=== PATIENT | male | born 1980 | race African-American/Black ===

== ENCOUNTER 2018-02-27 22:06 | Emergency (ER) | payer OTHER, MEDICAID, SELFPAY ==
[2018-02-27 22:13] VITALS: BP 131/82; PULSE 61; RESP 18; TEMP 37.5; O2SAT 98
--- NOTE | 2018-02-27 22:29 | ED.ABDPAIN ---
HPI - Abdominal Pain General Chief Complaint: Abdominal Pain Stated Complaint: RUQ pain Time Seen by Provider: 02/27/18 22:29 Source: patient and EMS Mode of arrival: EMS Limitations: no limitations History of Present Illness HPI narrative: 38-year-old male with longstanding history of pancreatitis presents to the emergency department with chief complaint of epigastric pain and vomiting. He has been to [facility] for times in the past week for the same. He is well known to myself self and other staff for the same. The patient has established care with [facility] gastroenterology any even oncology given some recent abnormal lab test. He has an upcoming appointment with them complaint: abdominal pain Onset (ago): minute(s) Pain Consistency: constant Location: epigastric Severity: mild Severity scale (1-10): 4 Quality: stabbing Radiation: none Migration to: no migration Relieving factors: nothing Exacerbating factors: nothing Associated symptoms: nausea and vomiting Related Data Home Medications Medication Instructions Recorded Confirmed amlodipine #90 09/23/17 famotidine #30 09/23/17 lorazepam #15 09/23/17 oxycodone-acetaminophen #15 09/23/17 polyethylene glycol 3350 #527 09/23/17 sucralfate #40 09/23/17 Previous Rx's Medication Instructions Recorded hydrocodone-acetaminophen [[place]] 1 tab PO Q6HP PRN #10 tab 07/16/17 ondansetron [Zofran ODT] 4 mg SUBLINGUAL Q6HP PRN #10 odt 07/16/17 omeprazole magnesium [Prilosec OTC] 20 mg PO QDAY #30 12/07/17 oxycodone-acetaminophen [Percocet] 1 tab PO Q4HP PRN #15 tab 12/07/17 sucralfate [Carafate] 1 gm PO ACHS #1 bot 12/07/17 promethazine [Phenergan] 25 mg RC Q8HP PRN #14 12/15/17 promethazine [Phenergan] 25 mg WI Q4-6H PRN #12 each 02/28/18 Allergies Allergy/AdvReac Type Severity Reaction Status Date / Time morphine [MORPHINE] Allergy Unknown Unverified 12/11/17 12:03 Review of Systems Review of Systems All systems reviewed & are unremarkable except as noted in HPI and below Constitutional Denies chills, Denies fever(s), Denies lethargy and Denies weakness Eyes Denies change in vision, Denies eye discharge, Denies irritation and Denies loss of vision ENT Ears, Nose, Mouth, and Throat: Denies change in voice, Denies neck pain and Denies sore throat Cardiovascular Denies chest pain, Denies irregular heart rhythm, Denies lightheadedness, Denies palpitations, Denies dyspnea, Denies dyspnea on exertion and Denies orthopnea Respiratory Denies cough, Denies dyspnea, Denies dyspnea on exertion and Denies wheezing Gastrointestinal Gastrointestinal: Reports abdominal pain, Denies change in bowel habits, Denies diarrhea, Reports nausea and Reports vomiting Genitourinary Denies hematuria, Denies flank pain, Denies urinary incontinence and Denies urinary urgency Musculoskeletal Denies neck pain Integumentary/Breasts Denies pruritus, Denies erythema, Denies rash and Denies wounds Neurologic Denies confusion, Denies loss of vision and Denies weakness Psychiatric Denies anxiety, Denies confusion, Denies depression, Denies homicidal ideation and Denies suicidal ideation Endocrine Denies palpitations Hematologic/Lymphatic Denies easy bruising Allergic/Immunologic Denies wheezing PFSH Family History Brother Epilepsy Father Asthma Hypertension Social History Smoking Status: Current every day smoker Exam Initial Vital Signs Initial Vital Signs: Vital Signs Temperature 99.5 F 02/27/18 22:13 Pulse Rate 61 02/27/18 22:13 Respiratory Rate 18 02/27/18 22:13 Blood Pressure 131/82 H 02/27/18 22:13 Pulse Oximetry 98 02/27/18 22:13 Const General: cooperative and well developed Nutritional Appearance: well nourished Orientation: alert, awake, oriented x3 and not confused [facility] Head: normocephalic and atraumatic Ears: external ears normal and TM's normal bilaterally Nose: external nose normal and No nasal discharge Face and sinus: sinuses nontender, face symmetric, no sinus tenderness and No dry mucous membranes Mouth: oral mucosae normal and moist mucous membranes Teeth and gingiva: dentition normal Throat: tonsils normal and uvula midline Eyes General: appearance normal, both eyes and all related structures Eyelids: eyelids normal Conjunctivae: conjunctivae normal Sclera: sclerae normal Pupils: PERRL EOM: EOM intact bilaterally Neck Neck: normal visual inspection, trachea midline, No lymphadenopathy, No midline deformity and No JVD Lymphatic: No lymphedema Chest Chest: normal inspection of the chest Resp Effort & Inspection: normal respiratory effort, able to speak in complete sentences, no respiratory distress and no use of accessory muscles Auscultation: clear to auscultation bilaterally, no rales, no rhonchi and no wheezes Cardio Rate: regular rate Rhythm: regular rhythm Heart Sounds: no click, no gallops, no murmurs and no rubs Pulses: normal peripheral pulses GI Inspection: non-distended Palpation: soft, no hepatosplenomegaly, No guarding, No pulsatile mass and tender Auscultation: normal bowel sounds Back/Spine/Pelvis Back: No CVA tenderness Cervical Spine: cervical ROM normal and No pain with cervical ROM Thoracic/Lumbar Spine: thoracic and lumbar spine normal to inspection Skin General: no rashes or lesions noted, No jaundice and No petechiae Neuro General: alert, oriented x3, gait normal and no focal motor deficits Speech: speech normal Extrem General: full ROM, no clubbing, cyanosis or edema, no pedal edema and no calf tenderness Psych Appearance: well kempt Mental Status: mental status grossly normal Attitude: cooperative Thought Content: normal and suicidality Judgment: judgment good Course Orders Ordered: ED Orders 02/27/18 22:34 Complete Blood Count AUTO DIFF Stat Comprehensive Metabolic Panel Stat Lipase Stat Discontinued Medications Al Hydrox/Mg Hydrox/Simethicone 20 ml/ Lidocaine HCl 15 ml 0 ml PO NOW ONE Stop: 02/28/18 00:55 Last Admin: 02/28/18 01:05 Dose: 30 ml Reevaluation(s) Reevaluation #1: Patient feels complete resolution of symptoms after Zofran by EMS and above-stated GI cocktail. He is requesting discharge stating he feels fine Vital Signs - 8 hr 02/27/18 22:13 02/27/18 23:24 02/28/18 01:35 Temperature 99.5 F 97.6 F 98.1 F Pulse Rate 61 50 L 50 L Respiratory Rate 18 16 16 Blood Pressure 131/82 H Blood Pressure [Right Arm] 120/74 124/84 H Pulse Oximetry 98 97 99 MDM - Abdominal Pain Lab Data Result diagrams: 02/27/18 22:34 02/27/18 22:34 Lab Results 06/28/18 06/28/18 Range/Units 22:34 22:34 WBC 4.6 (4.5-11.0) X10^3/uL RBC 4.56 (4.5-5.9) X10^6/uL Hgb 12.2 L (13.5-17.5) g/dL Hct 37.0 L (41-53) % MCV 81.3 (80-100) fL MCH 26.7 (26-34) PG MCHC 32.9 (30-36) % RDW 14.1 (11.6-14.8) % Plt Count 265 (150-400) X10^3/uL Neut % (Auto) 33.7 L (50-75) % Lymph % (Auto) 49.0 H (25-40) % [place] % (Auto) 10.2 (3-14) % Eos % (Auto) 6.4 H (2-4) % Baso % (Auto) 0.7 (0-2) % Neut # (Auto) 1600 L (2702-6838) /uL Sodium 139 (137-145) mmol/L Potassium 3.8 (3.4-5.1) mmol/L Chloride 102 (98-107) mmol/L Carbon Dioxide 29 (22-32) mmol/L BUN 14 (9-20) mg/dL Creatinine 0.70 (0.66-1.25) mg/dL Estimated GFR > 60.0 (>60) mL/min BUN/Creatinine Ratio 20.0 (6-22) Glucose 88 (70-100) mg/dL Calcium 8.6 (8.4-10.2) mg/dL Total Bilirubin 0.3 (0.2-1.3) mg/dL AST 22 (17-59) IU/L ALT 49 (21-72) IU/L Alkaline Phosphatase 84 (38-126) U/L Total Protein 6.4 (6.3-8.2) g/dL Albumin 3.7 (3.5-5.0) g/dL Globulin 2.7 (1.7-4.1) g/dL Albumin/Globulin Ratio 1.4 (1.0-2.8) Lipase 203 (23-300) U/L Discharge Plan Departure Patient Disposition: Home, Self-Care Clinical Impression: Abdominal pain, acute, epigastric Discharge Date/Time: 02/28/18 01:46 Interventions: ED Discharge Assessment Last Done: 02/28/18 01:45 Instructions: DI for Epigastric Pain Activity Restrictions/Additional Instructions: *You have been diagnosed with [ epigastric pain with nausea and vomiting ] *What to do: *Take medications as directed *Follow up with your primary care provider in 2-3 days *Return to ER if you should have any new, worsening or concerning symptoms Prescriptions: New promethazine [Phenergan] 25 mg suppository 25 mg WI Q4-6H PRN (Reason: nausea and vomiting) Qty: 12 RF: 0 No Action ondansetron [Zofran ODT] 4 MG tablet,disintegrating 4 mg Sublingual Q6HP PRNQty: 10 RF: 0 hydrocodone-acetaminophen [[place]] 5 MG/325 MG tablet 1 tab PO Q6HP PRNQty: 10 RF: 0 sucralfate 1 GM tablet Qty: 40 RF: 0 oxycodone-acetaminophen 5 MG/325 MG tablet Qty: 15 RF: 0 famotidine 20 MG tablet Qty: 30 RF: 0 amlodipine 10 MG tablet Qty: 90 RF: 0 polyethylene glycol 3350 255 GM powder Qty: 527 RF: 0 lorazepam 1 MG tablet Qty: 15 RF: 0 sucralfate [Carafate] 1 GM/10 ML suspension 1 gm PO ACHS Qty: 1 RF: 0 oxycodone-acetaminophen [Percocet] 5 MG/325 MG tablet 1 tab PO Q4HP PRNQty: 15 RF: 0 omeprazole magnesium [Prilosec OTC] 20 MG tablet,delayed release (DR/EC) 20 mg PO QDAY Qty: 30 RF: 0 promethazine [Phenergan] 25 MG suppository 25 mg RC Q8HP PRNQty: 14 RF: 0 Referrals: Magali Macdonald ARNP [Primary Care Provider] -
[2018-02-27 22:41] LABS: Add Manual Diff / Slide Review NO; Basophils Percent Auto 0.7 % (0-2); Eosinophils Percent Auto 6.4 % (2-4); Hemoglobin 12.2 g/dL (13.5-17.5); Mean Corpuscular HGB Conc 32.9 % (30-36); Mean Corpuscular Hemoglobin 26.7 PG (26-34); Mean Corpuscular Volume 81.3 fL (80-100); Monocytes Percent Auto 10.2 % (3-14); Neutrophils Absolute Auto 1600 /uL (3000-5900); Neutrophils Percent Auto 33.7 % (50-75); Platelet Count 265 X10^3/uL (150-400); Red Blood Cell Count 4.56 X10^6/uL (4.5-5.9); Red Cell Distribution Width 14.1 % (11.6-14.8); White Blood Cell Count 4.6 X10^3/uL (4.5-11.0)
[2018-02-27 22:51] LABS: Alanine Aminotransferase 49 IU/L (21-72); Albumin 3.7 g/dL (3.5-5.0); Albumin Globulin Ratio 1.4 (1.0-2.8); Alkaline Phosphatase 84 U/L (38-126); Aspartate Aminotransferase 22 IU/L (17-59); Bilirubin Total 0.3 mg/dL (0.2-1.3); Blood Urea Nitrogen 14 mg/dL (9-20); Calcium 8.6 mg/dL (8.4-10.2); Carbon Dioxide 29 mmol/L (22-32); Chloride 102 mmol/L (98-107); Estimated Glomerular Filt Rate > 60.0 mL/min (>60); Globulin 2.7 g/dL (1.7-4.1); Glucose 88 mg/dL (70-100); HEMOLYSIS < 15 (0-50); Lipase 203 U/L (23-300); Potassium 3.8 mmol/L (3.4-5.1); Sodium 139 mmol/L (137-145); Total Protein 6.4 g/dL (6.3-8.2)
[2018-02-27 23:24] VITALS: BP 120/74; PULSE 50; RESP 16; TEMP 36.4; O2SAT 97
[2018-02-28] MEDS: MAG HYDROX/ALUMINUM/SIMETH SUS 20 ML, LIDOCAINE VISCOUS 2% 15 ML PO (01:05)
[2018-02-28 01:35] VITALS: BP 124/84; PULSE 50; RESP 16; TEMP 36.7; O2SAT 99
== END 2018-02-28 01:46 | disposition home or self-care (01) ==
PROVIDERS: Emergency Provider Emergency Medicine; Family Provider Nurse Practitioner Gerontology; PCP Nurse Practitioner Gerontology
DX: R10.13 Epigastric pain (principal)
CPT/HCPCS: 36415; 80053; 83690; 85025; 99282; 99283

== ENCOUNTER 2018-07-04 15:46 | Emergency (ER) | payer OTHER, MEDICAID, SELFPAY ==
[2018-07-04 15:55] VITALS: BP 197/118; PULSE 69; RESP 18; TEMP 37.4; O2SAT 100
--- NOTE | 2018-07-04 16:21 | ED.ABDPAIN ---
HPI - Abdominal Pain <PHU Salomon-BC - Last Filed: 07/04/18 19:13> General Chief Complaint: Abdominal Pain Stated Complaint: Pancreatis pain with no relief Time Seen by Provider: 07/04/18 16:00 Source: patient and EMS Mode of arrival: EMS History of Present Illness HPI narrative: Patient is a 38-year-old male well known to this department as well as other local emergency department who presents with chief complaint of abdominal pain. He was seen at [facility] last night as well as the night before. Patient has a history of pancreatitis as well as hyperemesis related to cannabis use. Last night lab results illustrate a lipase of 38. patient's BUN was also 21. His lab results were within normal limits. Patient denies any chest pain, shortness of breath, fever but complains of nausea vomiting. Denies any diarrhea or constipation. Related Data Home Medications Medication Instructions Recorded Confirmed amlodipine 10 mg PO DAILY #90 09/23/17 07/04/18 omeprazole 40 mg PO DAILY 07/04/18 07/04/18 ondansetron HCl 8 mg PO BID 07/04/18 07/04/18 prochlorperazine maleate 10 mg PO Q6H PRN 07/04/18 07/04/18 ranitidine HCl 300 mg PO DAILY 07/04/18 07/04/18 venlafaxine 37.5 mg PO BID 07/04/18 07/04/18 Allergies Allergy/AdvReac Type Severity Reaction Status Date / Time morphine [MORPHINE] Allergy Unknown Unverified 12/11/17 12:03 Review of Systems <MIK Salomon - Last Filed: 07/04/18 19:13> Review of Systems GENERAL: Denies chills, fatigue, malaise, fever, sweats. HEENT: Denies sinus pain, ear pain, sore throat, difficulty swallowing, dizziness. RESPIRATORY: Denies dyspnea, cough, wheezing, hemoptysis, sputum. CARDIOVASCULAR: Denies chest pain, palpitations, orthopnea, edema, GASTROINTESTINAL: See HPI : Denies dysuria, frequency, incontinence, hematuria, urinary retention. MUSCULOSKELETAL: denies weakness, joint pain, or bony pain SKIN: Denies rash, skin lesions, or other NEUROLOGIC: Denies weakness, headache, numbness, change in speech, confusion, seizures, incoordination. PSYCHIATRIC: No concerning psychosocial issues. 12 point review of systems is negative except for those stated above Exam <MIK Salomon - Last Filed: 07/04/18 19:13> Narrative Exam Narrative: GENERAL: This is a well-nourished, well-developed patient, in no acute distress HEAD: Atraumatic. Normocephalic. No temporal or scalp tenderness. EYES: Pupils equal round and reactive. Extraocular motions intact. No scleral icterus. No injection or drainage. ENT: Nose without bleeding, purulent drainage or septal hematoma. Throat without erythema, tonsillar hypertrophy or exudate. Uvula midline. Airway patent. NECK: Trachea midline. No JVD or lymphadenopathy. Supple, nontender, no meningeal signs. CARDIOVASCULAR: Regular rate and rhythm without murmurs, gallops, or rubs. RESPIRATORY: Clear to auscultation. Breath sounds equal bilaterally. No wheezes, rales, or rhonchi. GASTROINTESTINAL: Abdomen soft, diffusely tender nondistended. No hepato-splenomegaly, or palpable masses. No guarding. active bowel sounds. No pulsatile mass. EXTREMITIES: No clubbing, cyanosis, or edema. No joint tenderness, effusion, or edema noted. BACK: Nontender without deformity or crepitance. No flank tenderness. NEURO: AOx3. SKIN: No rash or erythema. Initial Vital Signs Initial Vital Signs: Vital Signs Temperature 99.3 F 07/04/18 15:55 Pulse Rate 69 07/04/18 15:55 Respiratory Rate 18 07/04/18 15:55 Blood Pressure 197/118 H 07/04/18 15:55 Pulse Oximetry 100 07/04/18 15:55 <Bear Sandhu DO - Last Filed: 07/04/18 20:00> Initial Vital Signs Initial Vital Signs: Vital Signs Temperature 99.3 F 07/04/18 15:55 Pulse Rate 69 07/04/18 15:55 Respiratory Rate 18 07/04/18 15:55 Blood Pressure 197/118 H 07/04/18 15:55 Pulse Oximetry 100 07/04/18 15:55 Course <MIK Salomon - Last Filed: 07/04/18 19:13> Orders Ordered: ED Orders 07/04/18 16:09 Amylase Stat Complete Blood Count AUTO DIFF Stat Comprehensive Metabolic Panel Stat Lipase Stat Discontinued Medications Sodium Chloride (Normal Saline 0.9%) 1,000 mls @ 1,000 mls/hr IV BOLUS ONE Stop: 07/04/18 17:12 Last Infusion: 07/04/18 18:31 Dose: 0 mls/hr Admin: 07/04/18 17:08 Dose: 1,000 mls/hr Ketorolac Tromethamine (Toradol) 30 mg IV NOW ONE Stop: 07/04/18 17:24 Last Admin: 07/04/18 18:12 Dose: 30 mg Metoclopramide HCl (Reglan) 10 mg IV NOW ONE Stop: 07/04/18 17:08 Last Admin: 07/04/18 17:09 Dose: 10 mg Vital Signs - 8 hr 07/04/18 15:55 07/04/18 17:52 07/04/18 18:16 Temperature 99.3 F 99.2 F Pulse Rate 69 52 L 54 L Respiratory Rate 18 18 17 Blood Pressure 197/118 H Blood Pressure [Right Arm] 214/108 H 204/108 H Pulse Oximetry 100 100 100 07/04/18 18:47 Temperature Pulse Rate 56 L Respiratory Rate 16 Blood Pressure 207/111 H Blood Pressure [Right Arm] Pulse Oximetry 100 <Bear Sandhu, DO - Last Filed: 07/04/18 20:00> Orders Ordered: ED Orders 07/04/18 16:09 Amylase Stat Complete Blood Count AUTO DIFF Stat Comprehensive Metabolic Panel Stat Lipase Stat Discontinued Medications Sodium Chloride (Normal Saline 0.9%) 1,000 mls @ 1,000 mls/hr IV BOLUS ONE Stop: 07/04/18 17:12 Last Infusion: 07/04/18 18:31 Dose: 0 mls/hr Admin: 07/04/18 17:08 Dose: 1,000 mls/hr Ketorolac Tromethamine (Toradol) 30 mg IV NOW ONE Stop: 07/04/18 17:24 Last Admin: 07/04/18 18:12 Dose: 30 mg Metoclopramide HCl (Reglan) 10 mg IV NOW ONE Stop: 07/04/18 17:08 Last Admin: 07/04/18 17:09 Dose: 10 mg Vital Signs - 8 hr 07/04/18 15:55 07/04/18 17:52 07/04/18 18:16 Temperature 99.3 F 99.2 F Pulse Rate 69 52 L 54 L Respiratory Rate 18 18 17 Blood Pressure 197/118 H Blood Pressure [Right Arm] 214/108 H 204/108 H Pulse Oximetry 100 100 100 07/04/18 18:47 Temperature Pulse Rate 56 L Respiratory Rate 16 Blood Pressure 207/111 H Blood Pressure [Right Arm] Pulse Oximetry 100 MDM - Abdominal Pain <Nette Daron, [employer]-BC - Last Filed: 07/04/18 19:13> Lab Data Result diagrams: 07/04/18 16:09 07/04/18 16:09 Lab Results 07/04/18 07/04/18 Range/Units 16:09 16:09 WBC 10.9 (4.5-11.0) X10^3/uL RBC 5.79 (4.5-5.9) X10^6/uL Hgb 15.7 (13.5-17.5) g/dL Hct 48.3 (41-53) % MCV 83.5 (80-100) fL MCH 27.2 (26-34) PG MCHC 32.5 (30-36) % RDW 14.5 (11.6-14.8) % Plt Count 304 (150-400) X10^3/uL Neut % (Auto) 82.2 H (50-75) % Lymph % (Auto) 9.7 L (25-40) % [place] % (Auto) 7.7 (3-14) % Eos % (Auto) 0.1 L (2-4) % Baso % (Auto) 0.3 (0-2) % Neut # (Auto) 8900 H (6120-5048) /uL Sodium 144 (137-145) mmol/L Potassium 3.6 (3.4-5.1) mmol/L Chloride 104 (98-107) mmol/L Carbon Dioxide 26 (22-32) mmol/L BUN 26 H (9-20) mg/dL Creatinine 1.00 (0.66-1.25) mg/dL Estimated GFR > 60.0 (>60) mL/min BUN/Creatinine Ratio 26.0 H (6-22) Glucose 104 H (70-100) mg/dL Calcium 10.3 H (8.4-10.2) mg/dL Total Bilirubin 0.8 (0.2-1.3) mg/dL AST 26 (17-59) IU/L ALT 39 (21-72) IU/L Alkaline Phosphatase 70 (38-126) U/L Total Protein 8.0 (6.3-8.2) g/dL Albumin 4.8 (3.5-5.0) g/dL Globulin 3.2 (1.7-4.1) g/dL Albumin/Globulin Ratio 1.5 (1.0-2.8) Amylase 167 H (30-110) U/L Lipase 74 (23-300) U/L [facility] Narrative Medical decision making narrative: Patient is a 38-year-old male who presents with chronic nausea vomiting and abdominal pain. His labs were grossly within normal limits. He was concerned about the pancreatitis, but his lipase was within normal limits. His amylase is lower than has been on previous visits. Patient states he has been seen at another facility every day for the past few days. He was treated with Reglan and Toradol in the emergency department. I offered him a GI cocktail, but he stated it would not work. Patient was hemodynamically stable throughout his stay in the emergency department. Of note he was noted to be hypertensive but denied any chest pain or headache. He stated that his blood pressure was sided pain, but then declined nonnarcotic pain medications I offered him. Discussed follow-up with primary care provider, which the patient has scheduled on Saturday. <Bear Sandhu DO - Last Filed: 07/04/18 20:00> Lab Data Lab Results 07/04/18 07/04/18 Range/Units 16:09 16:09 WBC 10.9 (4.5-11.0) X10^3/uL RBC 5.79 (4.5-5.9) X10^6/uL Hgb 15.7 (13.5-17.5) g/dL Hct 48.3 (41-53) % MCV 83.5 (80-100) fL MCH 27.2 (26-34) PG MCHC 32.5 (30-36) % RDW 14.5 (11.6-14.8) % Plt Count 304 (150-400) X10^3/uL Neut % (Auto) 82.2 H (50-75) % Lymph % (Auto) 9.7 L (25-40) % [place] % (Auto) 7.7 (3-14) % Eos % (Auto) 0.1 L (2-4) % Baso % (Auto) 0.3 (0-2) % Neut # (Auto) 8900 H (1986-1402) /uL Sodium 144 (137-145) mmol/L Potassium 3.6 (3.4-5.1) mmol/L Chloride 104 (98-107) mmol/L Carbon Dioxide 26 (22-32) mmol/L BUN 26 H (9-20) mg/dL Creatinine 1.00 (0.66-1.25) mg/dL Estimated GFR > 60.0 (>60) mL/min BUN/Creatinine Ratio 26.0 H (6-22) Glucose 104 H (70-100) mg/dL Calcium 10.3 H (8.4-10.2) mg/dL Total Bilirubin 0.8 (0.2-1.3) mg/dL AST 26 (17-59) IU/L ALT 39 (21-72) IU/L Alkaline Phosphatase 70 (38-126) U/L Total Protein 8.0 (6.3-8.2) g/dL Albumin 4.8 (3.5-5.0) g/dL Globulin 3.2 (1.7-4.1) g/dL Albumin/Globulin Ratio 1.5 (1.0-2.8) Amylase 167 H (30-110) U/L Lipase 74 (23-300) U/L Discharge Plan Departure Patient Disposition: Home Clinical Impression: Abdominal pain Discharge Date/Time: 07/04/18 18:49 Interventions: ED Discharge Assessment Last Done: 07/04/18 18:47 Instructions: DI for Abdominal Pain-Adult Activity Restrictions/Additional Instructions: Your lab work came back normal today. You have no signs of pancreatitis in your blood work. Please continue to use your prescriptions of pain and nausea medications. Please follow-up with primary care provider. Please follow-up you with your primary care provider about your blood pressure as well. Prescriptions: No Action amlodipine 10 MG tablet 10 mg PO DAILY Qty: 90 RF: 0 ranitidine HCl 300 mg tablet 300 mg PO DAILY RF: 0 ondansetron HCl 8 mg tablet 8 mg PO BID RF: 0 prochlorperazine maleate 10 mg tablet 10 mg PO Q6H PRN (Reason: Nausea And Vomiting) RF: 0 omeprazole 40 mg capsule,delayed release(DR/EC) 40 mg PO DAILY RF: 0 venlafaxine 37.5 mg tablet 37.5 mg PO BID RF: 0 Referrals: Magali Macdonald ARNP [Primary Care Provider] -
[2018-07-04 16:32] LABS: Add Manual Diff / Slide Review NO; Basophils Percent Auto 0.3 % (0-2); Eosinophils Percent Auto 0.1 % (2-4); Hematocrit 48.3 % (41-53); Hemoglobin 15.7 g/dL (13.5-17.5); Lymphocytes Percent Auto 9.7 % (25-40); Mean Corpuscular HGB Conc 32.5 % (30-36); Mean Corpuscular Hemoglobin 27.2 PG (26-34); Mean Corpuscular Volume 83.5 fL (80-100); Monocytes Percent Auto 7.7 % (3-14); Neutrophils Absolute Auto 8900 /uL (3000-5900); Neutrophils Percent Auto 82.2 % (50-75); Platelet Count 304 X10^3/uL (150-400); Red Blood Cell Count 5.79 X10^6/uL (4.5-5.9); Red Cell Distribution Width 14.5 % (11.6-14.8); White Blood Cell Count 10.9 X10^3/uL (4.5-11.0)
[2018-07-04 16:56] LABS: Alanine Aminotransferase 39 IU/L (21-72); Albumin 4.8 g/dL (3.5-5.0); Albumin Globulin Ratio 1.5 (1.0-2.8); Alkaline Phosphatase 70 U/L (38-126); Amylase 167 U/L (30-110); Aspartate Aminotransferase 26 IU/L (17-59); Bilirubin Total 0.8 mg/dL (0.2-1.3); Blood Urea Nitrogen 26 mg/dL (9-20); Calcium 10.3 mg/dL (8.4-10.2); Carbon Dioxide 26 mmol/L (22-32); Chloride 104 mmol/L (98-107); Estimated Glomerular Filt Rate > 60.0 mL/min (>60); Globulin 3.2 g/dL (1.7-4.1); Glucose 104 mg/dL (70-100); HEMOLYSIS < 15 (0-50); Lipase 74 U/L (23-300); Potassium 3.6 mmol/L (3.4-5.1); Sodium 144 mmol/L (137-145)
[2018-07-04] MEDS: SODIUM CHLORIDE 0.9% 1,000 ML 1000 ML IV (17:08)
[2018-07-04] MEDS: METOCLOPRAMIDE 10 MG/2 ML INJ IV (17:09)
[2018-07-04 17:52] VITALS: BP 214/108; PULSE 52; RESP 18; O2SAT 100
[2018-07-04] MEDS: KETOROLAC 60 MG/2 ML VIAL 30 MG IV (18:12)
[2018-07-04 18:16] VITALS: BP 204/108; PULSE 54; RESP 17; TEMP 37.3; O2SAT 100
[2018-07-04 18:47] VITALS: BP 207/111; PULSE 56; RESP 16; O2SAT 100
== END 2018-07-04 18:49 | disposition home or self-care (01) ==
PROVIDERS: Emergency Provider Nurse Practitioner Family; Family Provider Nurse Practitioner Gerontology; PCP Nurse Practitioner Gerontology
DX: R10.9 Unspecified abdominal pain (principal)
CPT/HCPCS: 36591; 80053; 82150; 83690; 85025; 96361; 96374; 96375; 99283; 99284; J1885; J2765

== ENCOUNTER 2020-01-01 16:27 | Emergency (ER) | payer OTHER, MEDICAID, SELFPAY ==
[2020-01-01 16:50] VITALS: BP 154/110; PULSE 93; RESP 18; TEMP 36.8; O2SAT 99; BMI 23.6
[2020-01-01 17:23] LABS: Add Manual Diff / Slide Review NO; Basophils Absolute Auto 100 /uL (0-100); Basophils Percent Auto 0.8 % (0-2); Eosinophils Absolute Auto 0 /uL (0-450); Eosinophils Percent Auto 0.1 % (2-4); Hematocrit 51.1 % (41-53); Hemoglobin 17.3 g/dL (13.5-17.5); Lymphocytes Absolute Auto 1100 /uL (1100-4500); Lymphocytes Percent Auto 16.4 % (25-40); Mean Corpuscular HGB Conc 33.8 % (30-36); Mean Corpuscular Hemoglobin 27.8 PG (26-34); Mean Corpuscular Volume 82.5 fL (80-100); Monocytes Absolute Auto 900 /uL (0-900); Monocytes Percent Auto 12.7 % (3-14); Neutrophils Absolute Auto 4700 /uL (1500-7000); Platelet Count 347 X10^3/uL (150-400); Red Cell Distribution Width 13.3 % (11.6-14.8); White Blood Cell Count 6.7 X10^3/uL (4.5-11.0)
[2020-01-01 17:39] LABS: Alanine Aminotransferase 53 IU/L (<50); Albumin 5.9 g/dL (3.5-5.0); Albumin Globulin Ratio 1.3 (1.0-2.8); Alkaline Phosphatase 83 U/L (38-126); Aspartate Aminotransferase 127 IU/L (17-59); BUN Creatinine Ratio 8.9 (6-22); Bilirubin Total 1.1 mg/dL (0.2-1.3); Blood Urea Nitrogen 23 mg/dL (9-20); Calcium 11.9 mg/dL (8.4-10.2); Carbon Dioxide 26 mmol/L (22-32); Chloride 88 mmol/L (98-107); Estimated Glomerular Filt Rate 27.9 mL/min (>60); Globulin 4.4 g/dL (1.7-4.1); Glucose 153 mg/dL (70-100); HEMOLYSIS 16 (0-50); Lipase 324 U/L (23-300); Potassium 3.3 mmol/L (3.4-5.1); Sodium 133 mmol/L (137-145)
[2020-01-01 18:02] LABS: Total Protein 10.3 g/dL (6.3-8.2)
--- NOTE | 2020-01-01 19:10 | ED.GENADULT ---
HPI - General Adult General Chief complaint: Abdominal Pain Stated complaint: ABD PAIN Time Seen by Provider: 01/01/20 18:32 Source: patient Mode of arrival: Ambulatory Limitations: no limitations History of Present Illness HPI narrative: 39-year-old male here for evaluation left upper quadrant/epigastric pain. He states he has had pain like this off and on for the past 15 years. He states that he has had multiple visits to GI providers. Has had endoscopies, colonoscopies, and CT scans and ultrasounds. He states that the pain is he is having right now started earlier today however he states that he has had a ?flare? of the pain over the past month. Has been seen multiple times in the past several weeks at another facility for the same pain. He states that for the past couple days he has had limited oral intake secondary to the pain. He states that he has not urinated in the past couple days. He also states that he has not had a bowel movement the past couple days. No nausea. Has not tried anything for symptoms. Has been on Zantac in the past but stopped that secondary to the issues that it currently has been having with potentially causing cancer. He has not been restarted on any medications. He has not contacted his primary doctor regarding the pain during this episode. He states that this was because of the coronavirus issue that is currently going on. Comes emergency department today stating that the pain he is having is the same pain that he has had off and on for the past 15 years. Related Data Home Medications Medication Instructions Recorded Confirmed amlodipine 10 mg PO DAILY #90 09/23/17 07/04/18 omeprazole 40 mg PO DAILY 07/04/18 07/04/18 ondansetron HCl 8 mg PO BID 07/04/18 07/04/18 prochlorperazine maleate 10 mg PO Q6H PRN 07/04/18 07/04/18 ranitidine HCl 300 mg PO DAILY 07/04/18 07/04/18 venlafaxine 37.5 mg PO BID 07/04/18 07/04/18 Allergies Allergy/AdvReac Type Severity Reaction Status Date / Time No Known Drug Allergies Allergy Verified 01/01/20 16:50 Review of Systems Constitutional Constitutional: Denies fatigue and Denies fever(s) Cardiovascular Cardiovascular: Denies chest pain, Denies palpitations and Denies dyspnea Respiratory Respiratory: Denies cough and Denies dyspnea Gastrointestinal Gastrointestinal: Reports abdominal pain, Denies nausea and Denies vomiting Comments: Decreased urine output, decreased bowel movements for the past couple days Genitourinary Comments: Decreased urine output Musculoskeletal Musculoskeletal: Denies myalgias and Denies arthralgias Integumentary/Breasts Skin/Breast: Denies rash Neurologic Neurologic: Denies behavioral changes Psychiatric Psychiatric: Denies behavioral changes Endocrine Endocrine: Denies fatigue and Denies palpitations Hematologic/Lymphatic Hematologic/Lymphatic: Denies easy bleeding and Denies easy bruising Patient History Medical History Acute pancreatitis (Inactive) Calf DVT (deep venous thrombosis) (Inactive) Chronic pancreatitis (Inactive) Elevated lipase (Inactive) Epigastric abdominal pain (Inactive) Gastritis (Inactive) Hypertension (Inactive) Metatarsal bone fracture (Inactive) Pancreatitis (Inactive) Persistent vomiting (Inactive) Vomiting (Inactive) Family History (Updated 07/25/16 @ 00:00 by Conversion Provider) Brother Epilepsy Father Asthma Hypertension Social History Smoking Status: Current every day smoker Smoking Status: Current every day smoker tobacco type: cigarettes alcohol intake frequency: holidays/special occasions only Substance Use Type: marijuana Exam Initial Vital Signs Initial Vital Signs: Vital Signs Temperature 98.2 F 01/01/20 16:50 Pulse Rate 93 H 01/01/20 16:50 Respiratory Rate 18 01/01/20 16:50 Blood Pressure 154/110 H 01/01/20 16:50 Pulse Oximetry 99 01/01/20 16:50 Const General: cooperative Limitations: mental status not altered [facility] Head: normal to inspection and normocephalic Resp Effort & Inspection: normal respiratory effort Auscultation: clear to auscultation bilaterally Cardio Rate: regular rate Rhythm: regular rhythm Pulses: radial pulses present GI Inspection: non-distended Palpation: soft, No firm and tender (Upper abdomen bilateral) Back/Spine/Pelvis Back: No CVA tenderness Skin Lesions: no lesions Rashes: no rashes Neuro General: alert, awake and oriented x3 Cognition: normal cognition Speech: speech normal Extrem General: normal to inspection and capillary refill normal Psych Appearance: grossly normal and well kempt Course Orders Ordered: ED Orders 05/01/20 17:08 Complete Blood Count AUTO DIFF Stat Comprehensive Metabolic Panel Stat Lipase Stat 01/01/20 21:05 Ictotest Urine Stat Urinalysis and Microscopic Stat Urine Culture Stat 01/01/20 21:55 BMP [Basic Metabolic Panel] Stat Discontinued Medications Diphenhydramine HCl (Benadryl) 25 mg IV NOW ONE Stop: 01/01/20 19:17 Last Admin: 01/01/20 19:42 Dose: 25 mg Documented by: RUDI Haloperidol (Haldol) 2.5 mg IV NOW ONE Stop: 01/01/20 19:17 Last Admin: 01/01/20 19:48 Dose: Not Given Documented by: RUDI Sodium Chloride (Normal Saline 0.9%) 1,000 mls @ 1,000 mls/hr IV BOLUS ONE Stop: 01/01/20 20:09 Last Infusion: 01/01/20 20:45 Dose: 0 mls/hr Documented by: Admin: 01/01/20 19:43 Dose: 1,000 mls/hr Documented by: RUDI Sodium Chloride (Normal Saline 0.9%) 1,000 mls @ 1,000 mls/hr IV BOLUS ONE Stop: 01/01/20 21:22 Last Infusion: 01/01/20 22:55 Dose: 0 mls/hr Documented by: Admin: 01/01/20 20:32 Dose: 1,000 mls/hr Documented by: RUDI Vital Signs Vital signs: Vital Signs - 8 hr 01/01/20 23:09 Pulse Rate 72 Respiratory Rate 16 Blood Pressure [Right Arm] 161/97 H Pulse Oximetry 98 Medical Decision Making Lab Data Lab results reviewed: Yes I reviewed the patient's lab results. Result diagrams: 01/01/20 17:08 01/01/20 21:55 Labs: Lab Results 01/01/20 01/01/20 01/01/20 Range/Units 17:08 17:08 21:05 WBC 6.7 (4.5-11.0) X10^3/uL RBC 6.20 H (4.5-5.9) X10^6/uL Hgb 17.3 (13.5-17.5) g/dL Hct 51.1 (41-53) % MCV 82.5 (80-100) fL MCH 27.8 (26-34) PG MCHC 33.8 (30-36) % RDW 13.3 (11.6-14.8) % Plt Count 347 (150-400) X10^3/uL Neut % (Auto) 70.0 (50-75) % Lymph % (Auto) 16.4 L (25-40) % [place] % (Auto) 12.7 (3-14) % Eos % (Auto) 0.1 L (2-4) % Baso % (Auto) 0.8 (0-2) % Neut # (Auto) 4700 (2530-2320) /uL Lymph # (Auto) 1100 (4457-7988) /uL [place] # (Auto) 900 (0-900) /uL Eos # (Auto) 0 (0-450) /uL Baso # (Auto) 100 (0-100) /uL Sodium 133 L (137-145) mmol/L Potassium 3.3 L (3.4-5.1) mmol/L Chloride 88 L (98-107) mmol/L Carbon Dioxide 26 (22-32) mmol/L BUN 23 H (9-20) mg/dL Creatinine 2.59 H (0.66-1.25) mg/dL Estimated GFR 27.9 L (>60) mL/min BUN/Creatinine Ratio 8.9 (6-22) Glucose 153 H (70-100) mg/dL Calcium 11.9 H (8.4-10.2) mg/dL Total Bilirubin 1.1 (0.2-1.3) mg/dL AST 127 H (17-59) IU/L ALT 53 H (<50) IU/L Alkaline Phosphatase 83 (38-126) U/L Total Protein 10.3 H* (6.3-8.2) g/dL Albumin 5.9 H (3.5-5.0) g/dL Globulin 4.4 H (1.7-4.1) g/dL Albumin/Globulin Ratio 1.3 (1.0-2.8) Lipase 324 H (23-300) U/L Urine Color Yellow Urine Appearance Clear Urine pH 5.0 (4.5-8.0) Ur Specific [place] 1.020 (1.000-1.035) Urine Protein 1+ H (Negative) Urine Glucose (UA) Negative (Negative) g/dL Urine Ketones Trace H (NEGATIVE) Urine Occult Blood Negative (Negative) Urine Nitrate Negative (Negative) Urine Bilirubin 1+ H (NEGATIVE) Ur Bilirubin Confirm Negative (Negative) Urine Urobilinogen 0.2 (0.2) E.U./dL Ur Leukocyte Esterase Negative (NEGATIVE) Urine RBC None seen (0-5/HPF) Urine WBC 5-10/hpf H (0-5/HPF) Ur Squamous Epith Cells 0-1 /hpf (0-5/HPF) Amorphous Sediment 1+ Urine Bacteria Occasional (0-1) (None) Hyaline Casts 10-30/lpf (None) Urine Mucus 2+ H (Negative) Ur Culture Indicated? Specimen cultured 01/01/20 Range/Units 21:55 WBC (4.5-11.0) X10^3/uL RBC (4.5-5.9) X10^6/uL Hgb (13.5-17.5) g/dL Hct (41-53) % MCV (80-100) fL MCH (26-34) PG MCHC (30-36) % RDW (11.6-14.8) % Plt Count (150-400) X10^3/uL Neut % (Auto) (50-75) % Lymph % (Auto) (25-40) % [place] % (Auto) (3-14) % Eos % (Auto) (2-4) % Baso % (Auto) (0-2) % Neut # (Auto) (1981-0847) /uL Lymph # (Auto) (2345-1723) /uL [place] # (Auto) (0-900) /uL Eos # (Auto) (0-450) /uL Baso # (Auto) (0-100) /uL Sodium 134 L (137-145) mmol/L Potassium 3.4 (3.4-5.1) mmol/L Chloride 94 L (98-107) mmol/L Carbon Dioxide 28 (22-32) mmol/L BUN 24 H (9-20) mg/dL Creatinine 2.04 H (0.66-1.25) mg/dL Estimated GFR 36.7 L (>60) mL/min BUN/Creatinine Ratio 11.8 (6-22) Glucose 98 (70-100) mg/dL Calcium 9.8 (8.4-10.2) mg/dL Total Bilirubin (0.2-1.3) mg/dL AST (17-59) IU/L ALT (<50) IU/L Alkaline Phosphatase (38-126) U/L Total Protein (6.3-8.2) g/dL Albumin (3.5-5.0) g/dL Globulin (1.7-4.1) g/dL Albumin/Globulin Ratio (1.0-2.8) Lipase (23-300) U/L Urine Color Urine Appearance Urine pH (4.5-8.0) Ur Specific [place] (1.000-1.035) Urine Protein (Negative) Urine Glucose (UA) (Negative) g/dL Urine Ketones (NEGATIVE) Urine Occult Blood (Negative) Urine Nitrate (Negative) Urine Bilirubin (NEGATIVE) Ur Bilirubin Confirm (Negative) Urine Urobilinogen (0.2) E.U./dL Ur Leukocyte Esterase (NEGATIVE) Urine RBC (0-5/HPF) Urine WBC (0-5/HPF) Ur Squamous Epith Cells (0-5/HPF) Amorphous Sediment Urine Bacteria (None) Hyaline Casts (None) Urine Mucus (Negative) Ur Culture Indicated? MDM Narrative Medical decision making narrative: Patient states that the pain that brought him in today is the same chronic abdominal pain that he has had off and on for the past 15 years. Today's ?flare? in the pain has been going on for the past month. He has been seen several times than the past week and also department. I was able to obtain those notes. Those notes do raise concerns about potential cannabis hyperemesis and pancreatitis and potential ulcer secondary to alcohol abuse. Patient did admit to drinking some alcohol. He did admit to smoking cannabis however he states that is not a daily occurrence for him. He did admit that his pain today does get better with hot showers which is 1 of the features of the cannabis hyperemesis. Patient did state that he has been told in the past that his kidney function has not been ?normal? he does not remember exactly what it has been in the past. His initial creatinine today was elevated with a low GFR. This did improve somewhat after 2 L of fluids. Patient also urinated dark colored urine after the fluids. I did do suspect that his kidney function is partially related to prerenal/hydration status. He denied the Haldol that was ordered for him. I ordered this secondary to notes from prior ER visit stating that the patient was given Haldol and Benadryl and this seemed to resolve his symptoms. He informed me that he has a ?opposite reaction ?to the Haldol that is why he did not want. Does not have a leukocytosis. I feel given his clinical presentation in the workup that he has had over the past couple weeks and also the fact this has been going on for 15 years that we could hold on further workup for now to the ER. He does have a slightly elevated lipase however not a level that I would consider pancreatitis is the cause of his symptoms. Feel patient could be safely discharged home. Informed him that he should talk with his primary provider about further pain control issues if he needs this. We did discuss return precautions. His family was at bedside for these discussions. Expressed understanding and agreement. Discharge Plan Departure Patient Disposition: Home Clinical Impression: Abdominal pain Qualifiers: Abdominal location: epigastric Qualified Code(s): R10.13 - Epigastric pain Discharge Date/Time: 01/01/20 23:12 Instructions: DI for Abdominal Pain-Adult Activity Restrictions/Additional Instructions: I recommend that you talk with your primary provider about long-term treatment of your chronic abdominal pain. I recommend that you abstain from alcohol and/or marijuana use. Also recommend that you start taking Pepcid. You can buy this medication [id number]. The generic version this medication is appropriate. Take it as directed. Contact your primary provider for follow-up. Prescriptions: No Action amlodipine 10 MG tablet 10 mg PO DAILY Qty: 90 RF: 0 ranitidine HCl 300 mg tablet 300 mg PO DAILY RF: 0 ondansetron HCl 8 mg tablet 8 mg PO BID RF: 0 prochlorperazine maleate 10 mg tablet 10 mg PO Q6H PRN (Reason: Nausea And Vomiting) RF: 0 omeprazole 40 mg capsule,delayed release(DR/EC) 40 mg PO DAILY RF: 0 venlafaxine 37.5 mg tablet 37.5 mg PO BID RF: 0 Referrals: Magali Macdonald ARNP [Primary Care Provider] -
[2020-01-01] MEDS: diphenhydrAMINE 50 MG/ML VIAL 25 MG IV (19:42)
[2020-01-01] MEDS: SODIUM CHLORIDE 0.9% 1,000 ML 1000 ML IV ×2 (19:43→20:32)
--- NOTE | 2020-01-01 19:48 | PC.NURSE ---
Pt declined the haldol, states makes his anxiety increase
[2020-01-01 21:13] LABS: RBC Urine None Seen (0-5/HPF)
[2020-01-01 21:16] LABS: Appearance Urine UA CLEAR; Bilirubin Urine UA 1+ (NEGATIVE); Color Urine UA YELLOW; Glucose Urine UA NEGATIVE (Negative); Ketones Urine UA TRACE (NEGATIVE); Leukocyte Esterase Urine UA NEGATIVE (NEGATIVE); Nitrite Urine UA NEGATIVE (Negative); Occult Blood Urine UA NEGATIVE (Negative); Protein Urine UA 1+ (Negative); Urobilinogen Urine UA 0.2 E.U./dL (0.2)
[2020-01-01 21:19] LABS: Ictotest Urine Negative (Negative)
[2020-01-01 21:23] LABS: Amorphous Sediment Urine 1+; Squamous Epithelial Cell Urine 0-1 /HPF (0-5/HPF); WBC Urine 5-10/HPF (0-5/HPF)
[2020-01-01 21:24] LABS: Bacteria Urine Occasional (0-1); Culture Indicated Urine Specimen Cultured; Hyaline Casts Urine 10-30/LPF; Mucus Urine 2+ (Negative)
[2020-01-01 22:15] LABS: BUN Creatinine Ratio 11.8 (6-22); Blood Urea Nitrogen 24 mg/dL (9-20); Calcium 9.8 mg/dL (8.4-10.2); Carbon Dioxide 28 mmol/L (22-32); Chloride 94 mmol/L (98-107); Estimated Glomerular Filt Rate 36.7 mL/min (>60); Glucose 98 mg/dL (70-100); HEMOLYSIS < 15 (0-50); Potassium 3.4 mmol/L (3.4-5.1); Sodium 134 mmol/L (137-145)
[2020-01-01 23:09] VITALS: BP 161/97; PULSE 72; RESP 16; O2SAT 98
== END 2020-01-01 23:12 | disposition home or self-care (01) ==
PROVIDERS: Emergency Medicine; Emergency Provider Emergency Medicine; Family Provider Nurse Practitioner Gerontology; PCP Nurse Practitioner Gerontology
DX: R10.13 Epigastric pain (principal)
CPT/HCPCS: 36415; 80048; 80053; 81001; 83690; 85025; 87086; 96361; 96374; 99284; J1200

== ENCOUNTER 2021-05-17 15:35 | Emergency (ER) | payer OTHER, MEDICAID, SELFPAY ==
[2021-05-17 15:36] VITALS: BP 141/87; PULSE 82; RESP 16; TEMP 36.6; O2SAT 100
[2021-05-17 15:42] VITALS: BP 141/87; PULSE 67; TEMP 36.8; O2SAT 97
[2021-05-17] MEDS: ONDANSETRON 4 MG/2 ML INJ IV ×2 (15:43→16:53)
[2021-05-17] MEDS: SODIUM CHLORIDE 0.9% 1,000 ML 1000 ML IV ×2 (15:44→17:55)
[2021-05-17 15:49] LABS: Add Manual Diff / Slide Review NO; Basophils Absolute Auto 100 /uL (0-100); Basophils Percent Auto 2.1 % (0-2); Eosinophils Absolute Auto 200 /uL (0-450); Eosinophils Percent Auto 3.9 % (2-4); Hematocrit 52.2 % (41-53); Hemoglobin 17.1 g/dL (13.5-17.5); Lymphocytes Absolute Auto 2000 /uL (1100-4500); Lymphocytes Percent Auto 44.6 % (25-40); Mean Corpuscular HGB Conc 32.7 % (30-36); Mean Corpuscular Hemoglobin 27.8 PG (26-34); Monocytes Absolute Auto 500 /uL (0-900); Monocytes Percent Auto 11.7 % (3-14); Neutrophils Absolute Auto 1600 /uL (1500-7000); Neutrophils Percent Auto 37.7 % (50-75); Platelet Count 273 X10^3/uL (150-400); Red Blood Cell Count 6.14 X10^6/uL (4.5-5.9); Red Cell Distribution Width 13.3 % (11.6-14.8); White Blood Cell Count 4.4 X10^3/uL (4.5-11.0)
[2021-05-17 16:00] LABS: Alanine Aminotransferase 26 IU/L (<50); Albumin 4.9 g/dL (3.5-5.0); Albumin Globulin Ratio 1.5 (1.0-2.8); Alkaline Phosphatase 72 U/L (38-126); Aspartate Aminotransferase 29 IU/L (17-59); Bilirubin Total 0.6 mg/dL (0.2-1.3); Blood Urea Nitrogen 27 mg/dL (9-20); Calcium 10.1 mg/dL (8.4-10.2); Carbon Dioxide 32 mmol/L (22-32); Chloride 96 mmol/L (98-107); Estimated Glomerular Filt Rate 58.5 mL/min (>60); Globulin 3.3 g/dL (1.7-4.1); Glucose 105 mg/dL (70-100); HEMOLYSIS < 15 (0-50); Lipase 165 U/L (23-300); Potassium 3.2 mmol/L (3.4-5.1); Sodium 138 mmol/L (137-145); Total Protein 8.2 g/dL (6.3-8.2)
--- NOTE | 2021-05-17 16:27 | DI.RAD.S_ITS ---
PROCEDURE: XR ACUTE ABDOMEN SERIES INDICATIONS: abd pain, vomiting TECHNIQUE: One view chest and two views of the abdomen were acquired. COMPARISON: [facility], , ABDOMEN ACUTE SERIES, 09/23/2017, 0:48. FINDINGS: Surgical changes and devices: None. Chest: Lungs are clear. Heart size is normal. No pleural effusions. No pneumoperitoneum. Abdomen: Bowel gas pattern is normal. No suspicious calcifications. Visualized solid organ contours appear normal. Bones: No suspicious bony lesions. IMPRESSION: No evidence of bowel obstruction or gross free air. No acute cardiopulmonary pathology. No abnormal renal calcifications. Dictated by: Gus Arriola M.D. on 05/17/2021 at 17:21 Approved by: Gus Arriola M.D. on 05/17/2021 at 17:21
[2021-05-17] MEDS: diphenhydrAMINE 50 MG/ML VIAL 25 MG IV (16:53)
[2021-05-17 17:41] VITALS: PULSE 47; RESP 21; O2SAT 99
[2021-05-17 18:00] VITALS: PULSE 48; RESP 17; O2SAT 95
[2021-05-17] MEDS: PANTOPRAZOLE 40 MG VIAL IV (18:01)
[2021-05-17] MEDS: METOCLOPRAMIDE 10 MG/2 ML INJ IV (18:02)
[2021-05-17] MEDS: POTASSIUM CHLORIDE 20 MEQ TAB 40 MEQ PO (18:53)
--- NOTE | 2021-05-17 18:54 | ED_ITS ---
HPI - Abdominal Pain <MIK Salomon - Last Filed: 05/17/21 20:01> General Chief Complaint: Abdominal Pain Stated Complaint: chronic pain Time Seen by Provider: 05/17/21 15:40 Source: patient and EMS Mode of arrival: EMS Limitations: no limitations History of Present Illness HPI narrative: The patient is a 41-year-old male current smoker marijuana user who presents with a chief complaint of severe abdominal pain, nausea and vomiting for the past several weeks. He states he has been using marijuana daily throughout this. He states that he has had a longstanding history of GI problems including his abdominal pain, nausea and vomiting for the past 17 years. He states he has seen multiple providers, gone to multiple emergency department had multiple imaging studies done including ultrasounds and CTs. He states he has been to multiple GI doctors, and states that nobody can ?figure it out.He states he last ate yesterday, denies any bowel movements for the past week. Denies any fever muscle aches or chills. Denies any chest pain or shortness of breath. He does note that he has lost weight. He followed up with primary care provider a few weeks ago. Related Data Home Medications Medication Instructions Recorded Confirmed amlodipine 10 mg tablet 10 mg PO DAILY #90 09/23/17 07/04/18 omeprazole 40 mg capsule,delayed 40 mg PO DAILY 07/04/18 07/04/18 release ondansetron HCl 8 mg tablet 8 mg PO BID 07/04/18 07/04/18 prochlorperazine maleate 10 mg 10 mg PO Q6H PRN 07/04/18 07/04/18 tablet ranitidine HCl 300 mg tablet 300 mg PO DAILY 07/04/18 07/04/18 venlafaxine 37.5 mg tablet 37.5 mg PO BID 07/04/18 07/04/18 Previous Rx's Medication Instructions Recorded metoclopramide HCl 10 mg tablet 10 mg PO Q6H PRN #14 tab 05/17/21 (Reglan) Allergies Allergy/AdvReac Type Severity Reaction Status Date / Time No Known Drug Allergies Allergy Verified 01/01/20 16:50 Review of Systems <MIK Salomon - Last Filed: 05/17/21 20:01> Review of Systems Narrative: GENERAL: Denies chills, fatigue, malaise, fever, sweats. HEENT: Denies sinus pain, ear pain, sore throat, difficulty swallowing, dizziness. RESPIRATORY: Denies dyspnea, cough, wheezing, hemoptysis, sputum. CARDIOVASCULAR: Denies chest pain, palpitations, orthopnea, edema, GASTROINTESTINAL: See HPI : Denies dysuria, frequency, incontinence, hematuria, urinary retention. MUSCULOSKELETAL: denies weakness, joint pain, or bony pain SKIN: Denies rash, skin lesions, or other NEUROLOGIC: Denies weakness, headache, numbness, change in speech, confusion, seizures, incoordination. PSYCHIATRIC: No concerning psychosocial issues. 12 point review of systems is negative except for those stated above Patient History <MIK Salomon - Last Filed: 05/17/21 20:01> Medical History (Updated 05/17/21 @ 19:13 by MIK Salomon) Acute pancreatitis Calf DVT (deep venous thrombosis) Chronic pancreatitis Elevated lipase Epigastric abdominal pain Gastritis Hypertension Metatarsal bone fracture Pancreatitis Persistent vomiting Vomiting Family History (Updated 07/25/16 @ 00:00 by Conversion Provider) Brother Epilepsy Father Asthma Hypertension Social History Smoking Status: Current every day smoker Smoking Status: Current every day smoker tobacco type: cigarettes alcohol intake frequency: holidays/special occasions only Substance Use Type: marijuana Exam <MIK Salomon - Last Filed: 05/17/21 20:01> Narrative Exam Narrative: GENERAL: This is a well-nourished, well-developed patient, in no acute distress playing games on cell phone HEAD: Atraumatic. Normocephalic. No temporal or scalp tenderness. EYES: Pupils equal round and reactive. Extraocular motions intact. No scleral icterus. No injection or drainage. ENT: Nose without bleeding, purulent drainage or septal hematoma. Wearing a mask. Airway patent. NECK: Trachea midline. No JVD or lymphadenopathy. Supple, nontender, no m eningeal signs. CARDIOVASCULAR: Regular rate and rhythm RESPIRATORY: Clear to auscultation. Breath sounds equal bilaterally. No wheezes, rales, or rhonchi. No cough. No increased respiratory effort. No accessory muscle use. GASTROINTESTINAL: Abdomen soft, diffuse pain to palpation, active bowel sounds all 4 quadrants nondistended. No hepato-splenomegaly, or palpable masses. No guarding. EXTREMITIES: No clubbing, cyanosis, or edema. No joint tenderness, effusion, or edema noted. BACK: Nontender without deformity or crepitance. No flank tenderness. NEURO: AOx3. SKIN: No rash or erythema on visible skin Initial Vital Signs Initial Vital Signs: Vital Signs Temperature 97.8 F 05/17/21 15:36 Pulse Rate 82 05/17/21 15:36 Respiratory Rate 16 05/17/21 15:36 Blood Pressure 141/87 H 05/17/21 15:36 Pulse Oximetry 100 05/17/21 15:36 <Jamshid Elizabeth DO - Last Filed: 05/18/21 02:55> Initial Vital Signs Initial Vital Signs: Vital Signs Temperature 97.8 F 05/17/21 15:36 Pulse Rate 82 05/17/21 15:36 Respiratory Rate 16 05/17/21 15:36 Blood Pressure 141/87 H 05/17/21 15:36 Pulse Oximetry 100 05/17/21 15:36 Scores <MIK Salomon - Last Filed: 05/17/21 20:01> GCS Adria coma scale eye opening: Spontaneous Adria coma scale verbal response: Orientated [place] coma scale motor response: Obey commands Adria coma scale total score: 15 <Jamshid Elizabeth DO - Last Filed: 05/18/21 02:55> GCS [place] coma scale total score: 15 Course <LYN Salomon - Last Filed: 05/17/21 20:01> Orders Ordered: Discontinued Medications Diphenhydramine HCl (Diphenhydramine 50 Mg/Ml Vial) 25 mg IV NOW ONE Stop: 05/17/21 16:28 Last Admin: 05/17/21 16:53 Dose: 25 mg Documented by: JAGDEEP Sodium Chloride (Normal Saline 0.9%) 1,000 mls @ 1,000 mls/hr IV BOLUS ONE Stop: 05/17/21 16:35 Last Infusion: 05/17/21 17:57 Dose: 0 mls/hr Documented by: Admin: 05/17/21 15:44 Dose: 1,000 mls/hr Documented by: SPENSER Sodium Chloride (Normal Saline 0.9%) 1,000 mls @ 1,000 mls/hr IV BOLUS ONE Stop: 05/17/21 17:26 Last Infusion: 05/17/21 18:59 Dose: 0 mls/hr Documented by: Admin: 05/17/21 17:55 Dose: 1,000 mls/hr Documented by: JAGDEEP Metoclopramide HCl (Metoclopramide 10 Mg/2 Ml Inj) 10 mg IV NOW ONE Stop: 05/17/21 17:54 Last Admin: 05/17/21 18:02 Dose: 10 mg Documented by: JAGDEEP Ondansetron HCl (Ondansetron 4 Mg/2 Ml Inj) 4 mg IV NOW ONE Stop: 05/17/21 15:37 Last Admin: 05/17/21 15:43 Dose: 4 mg Documented by: SPENSER Ondansetron HCl (Ondansetron 4 Mg/2 Ml Inj) 4 mg IV NOW ONE Stop: 05/17/21 16:28 Last Admin: 05/17/21 16:53 Dose: 4 mg Documented by: JAGDEEP Pantoprazole Sodium (Pantoprazole 40 Mg Vial) 40 mg IV NOW ONE Stop: 05/17/21 17:54 Last Admin: 05/17/21 18:01 Dose: 40 mg Documented by: JAGDEEP Potassium Chloride (Potassium Chloride 20 Meq Tab) 40 meq PO NOW ONE Stop: 05/17/21 18:46 Last Admin: 05/17/21 18:53 Dose: 40 meq Documented by: JAGDEEP Vital Signs Vital signs: Vital Signs - 8 hr 05/17/21 15:36 05/17/21 15:42 05/17/21 17:41 Temperature 97.8 F 98.3 F Pulse Rate 82 67 47 L Respiratory Rate 16 21 Blood Pressure 141/87 H 141/87 H Pulse Oximetry 100 97 99 05/17/21 18:00 Temperature Pulse Rate 48 L Respiratory Rate 17 Blood Pressure Pulse Oximetry 95 <Jamshid Elizabeth DO - Last Filed: 05/18/21 02:55> Orders Ordered: Discontinued Medications Diphenhydramine HCl (Diphenhydramine 50 Mg/Ml Vial) 25 mg IV NOW ONE Stop: 05/17/21 16:28 Last Admin: 05/17/21 16:53 Dose: 25 mg Documented by: JAGDEEP Sodium Chloride (Normal Saline 0.9%) 1,000 mls @ 1,000 mls/hr IV BOLUS ONE Stop: 05/17/21 16:35 Last Infusion: 05/17/21 17:57 Dose: 0 mls/hr Documented by: Admin: 05/17/21 15:44 Dose: 1,000 mls/hr Documented by: SPENSER Sodium Chloride (Normal Saline 0.9%) 1,000 mls @ 1,000 mls/hr IV BOLUS ONE Stop: 05/17/21 17:26 Last Infusion: 05/17/21 18:59 Dose: 0 mls/hr Documented by: Admin: 05/17/21 17:55 Dose: 1,000 mls/hr Documented by: JAGDEEP Metoclopramide HCl (Metoclopramide 10 Mg/2 Ml Inj) 10 mg IV NOW ONE Stop: 05/17/21 17:54 Last Admin: 05/17/21 18:02 Dose: 10 mg Documented by: JAGDEEP Ondansetron HCl (Ondansetron 4 Mg/2 Ml Inj) 4 mg IV NOW ONE Stop: 05/17/21 15:37 Last Admin: 05/17/21 15:43 Dose: 4 mg Documented by: SPENSER Ondansetron HCl (Ondansetron 4 Mg/2 Ml Inj) 4 mg IV NOW ONE Stop: 05/17/21 16:28 Last Admin: 05/17/21 16:53 Dose: 4 mg Documented by: JAGDEEP Pantoprazole Sodium (Pantoprazole 40 Mg Vial) 40 mg IV NOW ONE Stop: 05/17/21 17:54 Last Admin: 05/17/21 18:01 Dose: 40 mg Documented by: JAGDEEP Potassium Chloride (Potassium Chloride 20 Meq Tab) 40 meq PO NOW ONE Stop: 05/17/21 18:46 Last Admin: 05/17/21 18:53 Dose: 40 meq Documented by: JAGDEEP Vital Signs Vital signs: Vital Signs - 8 hr 05/17/21 15:36 05/17/21 15:42 05/17/21 17:41 Temperature 97.8 F 98.3 F Pulse Rate 82 67 47 L Respiratory Rate 16 21 Blood Pressure 141/87 H 141/87 H Pulse Oximetry 100 97 99 05/17/21 18:00 Temperature Pulse Rate 48 L Respiratory Rate 17 Blood Pressure Pulse Oximetry 95 MDM - Abdominal Pain <Nette Neri, SERVICE VEHICLE OPERATOR-BC - Last Filed: 05/17/21 20:01> Lab Data Result diagrams: 05/17/21 15:39 05/17/21 15:39 Labs: Lab Results 05/17/21 05/17/21 Range/Units 15:39 15:39 WBC 4.4 L (4.5-11.0) X10^3/uL RBC 6.14 H (4.5-5.9) X10^6/uL Hgb 17.1 (13.5-17.5) g/dL Hct 52.2 (41-53) % MCV 85.0 (80-100) fL MCH 27.8 (26-34) PG MCHC 32.7 (30-36) % RDW 13.3 (11.6-14.8) % Plt Count 273 (150-400) X10^3/uL Neut % (Auto) 37.7 L (50-75) % Lymph % (Auto) 44.6 H (25-40) % [place] % (Auto) 11.7 (3-14) % Eos % (Auto) 3.9 (2-4) % Baso % (Auto) 2.1 H (0-2) % Neut # (Auto) 1600 (9278-6118) /uL Lymph # (Auto) 2000 (8771-3740) /uL [place] # (Auto) 500 (0-900) /uL Eos # (Auto) 200 (0-450) /uL Baso # (Auto) 100 (0-100) /uL Sodium 138 (137-145) mmol/L Potassium 3.2 L (3.4-5.1) mmol/L Chloride 96 L (98-107) mmol/L Carbon Dioxide 32 (22-32) mmol/L BUN 27 H (9-20) mg/dL Creatinine 1.35 H (0.66-1.25) mg/dL Estimated GFR 58.5 L (>60) mL/min BUN/Creatinine Ratio 20.0 (6-22) Glucose 105 H (70-100) mg/dL Calcium 10.1 (8.4-10.2) mg/dL Total Bilirubin 0.6 (0.2-1.3) mg/dL AST 29 (17-59) IU/L ALT 26 (<50) IU/L Alkaline Phosphatase 72 (38-126) U/L Total Protein 8.2 (6.3-8.2) g/dL Albumin 4.9 (3.5-5.0) g/dL Globulin 3.3 (1.7-4.1) g/dL Albumin/Globulin Ratio 1.5 (1.0-2.8) Lipase 165 (23-300) U/L Imaging Data Abdominal x-ray: Radiologist's Impression: [address] [place] [id number] XRay Report Signed Patient: Santo Sanabria MR#: [id number] : 1980 Acct:[id number] Age/Sex: 41 / M Date of Service: 05/17/21 Loc: ED Accession Number: [id number] ?? Procedure: XR acute abdomen series Ordering Provider: Nette Neri PROCEDURE:? XR ACUTE ABDOMEN SERIES ? INDICATIONS:? abd pain, vomiting ? TECHNIQUE:? One view chest and two views of the abdomen were acquired.? ? COMPARISON:? Merged With [facility], , ABDOMEN ACUTE SERIES, 09/23/2017, 0:48. ? FINDINGS:? ? Surgical changes and devices:? None.? ? Chest:? Lungs are clear.? Heart size is normal.? No pleural effusions.? No pneumoperitoneum.? ? Abdomen:? Bowel gas pattern is normal.? No suspicious calcifications.? Visualized solid organ contours appear normal.? ? Bones:? No suspicious bony lesions.? ? IMPRESSION:? No evidence of bowel obstruction or gross free air.? No acute cardiopulmonary pathology.? No abnormal renal calcifications. ? ? Dictated by: Gus Arriola M.D. on 05/17/2021 at 17:21 ? ? Approved by: Gus Arriola M.D. on 05/17/2021 at 17:21 ? ECG Data Attestation: I personally reviewed and interpreted this ECG as follows: Interpretation: No sinus bradycardia. Ventricular rate 43. P.r. interval 140. QRS 98.Viewed by Dr Elizabeth. [facility] Narrative Medical decision making narrative: The patient is a 41-year-old male who presents with a chief complaint of abdominal pain, nausea vomiting, this is been going on for the past 17 years, worse over the past few weeks. He appears well and hemodynamically stable, is not tachycardic, not hypotensive, and is in no acute distress playing video games throughout his stay in the emergency department. He feels much improved after the above-stated therapies, particularly the Reglan. His potassium was on the low side at 3.2, so he was given p.o. potassium in the emergency department, which he tolerated well. He had no noted vomiting throughout his stay in the emergency department. His creatinine had improved from his last check from over 2 down to 1.35. IV fluids , Zofran as well. Given his lack of bowel movement, x-ray was taken to rule out obstruction which came back negative, correlating with his exam. I discussed at length follow up with primary care provider, return to the emergency department for any acute concerns such as inability keep down fluids. Patient has no questions or concerns upon discharge states understanding return precautions as well as follow-up care. He remains well appearing and nontoxic throughout his stay in the ER. <Jamshid Elizabeth DO - Last Filed: 05/18/21 02:55> Lab Data Labs: Lab Results 05/17/21 05/17/21 Range/Units 15:39 15:39 WBC 4.4 L (4.5-11.0) X10^3/uL RBC 6.14 H (4.5-5.9) X10^6/uL Hgb 17.1 (13.5-17.5) g/dL Hct 52.2 (41-53) % MCV 85.0 (80-100) fL MCH 27.8 (26-34) PG MCHC 32.7 (30-36) % RDW 13.3 (11.6-14.8) % Plt Count 273 (150-400) X10^3/uL Neut % (Auto) 37.7 L (50-75) % Lymph % (Auto) 44.6 H (25-40) % [place] % (Auto) 11.7 (3-14) % Eos % (Auto) 3.9 (2-4) % Baso % (Auto) 2.1 H (0-2) % Neut # (Auto) 1600 (1740-8807) /uL Lymph # (Auto) 2000 (1092-4257) /uL [place] # (Auto) 500 (0-900) /uL Eos # (Auto) 200 (0-450) /uL Baso # (Auto) 100 (0-100) /uL Sodium 138 (137-145) mmol/L Potassium 3.2 L (3.4-5.1) mmol/L Chloride 96 L (98-107) mmol/L Carbon Dioxide 32 (22-32) mmol/L BUN 27 H (9-20) mg/dL Creatinine 1.35 H (0.66-1.25) mg/dL Estimated GFR 58.5 L (>60) mL/min BUN/Creatinine Ratio 20.0 (6-22) Glucose 105 H (70-100) mg/dL Calcium 10.1 (8.4-10.2) mg/dL Total Bilirubin 0.6 (0.2-1.3) mg/dL AST 29 (17-59) IU/L ALT 26 (<50) IU/L Alkaline Phosphatase 72 (38-126) U/L Total Protein 8.2 (6.3-8.2) g/dL Albumin 4.9 (3.5-5.0) g/dL Globulin 3.3 (1.7-4.1) g/dL Albumin/Globulin Ratio 1.5 (1.0-2.8) Lipase 165 (23-300) U/L Discharge Plan Departure Patient Disposition: Home Clinical Impression: Chronic abdominal pain Nausea & vomiting Qualifiers: Vomiting type: unspecified Vomiting Intractability: non-intractable Qualified Code(s): R11.2 - Nausea with vomiting, unspecified Instructions: DI for Abdominal Pain-Adult, DI for Nausea -- Adult, DI for Vomiting -- Adult Activity Restrictions/Additional Instructions: Thank you for trusting us with your care today. As discussed, I sent a prescription of Reglan for nausea to [facility] in [place]. As discussed, please follow-up with primary care provider next few days. Please come back to emergency department for any acute concerns such as inability keep down fluids, abdominal pain with fever etcetera. Please rest, take small frequent sips of fluids, avoid foods that are difficult to digest such as spicy foods, fried foods, fatty foods etcetera Prescriptions: New metoclopramide HCl [Reglan] 10 mg tablet 10 mg PO Q6H PRN (Reason: nausea and vomiting) Qty: 14 RF: 0 No Action amlodipine 10 MG tablet 10 mg PO DAILY Qty: 90 RF: 0 ranitidine HCl 300 mg tablet 300 mg PO DAILY RF: 0 ondansetron HCl 8 mg tablet 8 mg PO BID RF: 0 prochlorperazine maleate 10 mg tablet 10 mg PO Q6H PRN (Reason: Nausea And Vomiting) RF: 0 omeprazole 40 mg capsule,delayed release(DR/EC) 40 mg PO DAILY RF: 0 venlafaxine 37.5 mg tablet 37.5 mg PO BID RF: 0 Referrals: Magali Macdonald ARNP [Primary Care Provider] - <Jamshid Elizabeth DO - Last Filed: 05/18/21 02:55> Cosign ED Attending Cosignature Attestation: Dr Elizabeth Co-Sign Statement: I was available for consultation during this patient's emergency department visit. This chart is signed by myself for administrative purposes only. I did not have direct contact with this patient during this visit. They were seen indepe ndently by the APC.
== END 2021-05-17 19:25 | disposition home or self-care (01) ==
PROVIDERS: Emergency Medicine; Emergency Provider Nurse Practitioner Family; Family Provider Nurse Practitioner Gerontology; PCP Nurse Practitioner Gerontology
DX: R11.2 Nausea with vomiting, unspecified (principal); R10.9 Unspecified abdominal pain
CPT/HCPCS: 36415; 74022; 80053; 83690; 85025; 93005; 93010; 96361; 96374; 96375; 96376; 99284; C9113; J1200; J2405; J2765

== ENCOUNTER 2022-05-30 13:39 | Emergency (ER) | payer OTHER, MEDICAID, SELFPAY ==
[2022-05-30] VITALS (7 sets, daily range): BP systolic 132–171; BP diastolic 72–100; PULSE 49–66; RESP 20; TEMP 37.3; O2SAT 97–99
--- NOTE | 2022-05-30 14:11 | DI.RAD.S_ITS ---
PROCEDURE: XR TIBIA FIBULA LT 2V INDICATIONS: chainsaw injury TECHNIQUE: 2 views of the tibia and fibula were acquired. COMPARISON: None. FINDINGS: Bones: Cortical defect involving anterior cortex of mid to distal tibial shaft is seen. No other fracture or dislocation is noted. Soft tissues: Soft tissue defect involving anterior aspect of mid to distal left lower leg over the above-mentioned cortical defect is seen. No suspicious soft tissue calcifications or masses. IMPRESSION: Soft tissue laceration involving anterior left lower leg with underlying incomplete fracture involving anterior cortex of left tibial shaft. No radiopaque foreign body. Dictated by: Gus Arriola M.D. on 05/30/2022 at 14:54 Approved by: Gus Arriola M.D. on 05/30/2022 at 14:57
[2022-05-30] MEDS: HYDROMORPHONE 1 MG INJ 2 MG IM (14:20)
[2022-05-30] MEDS: TET,DIPH,PERTUSS(ACELL),VAC/PF 0.5 ML SYRINGE IM (14:21)
[2022-05-30] MEDS: HYDROMORPHONE 1 MG INJ IV (14:39)
[2022-05-30 14:44] LABS: Add Manual Diff / Slide Review NO; Basophils Absolute Auto 0 /uL (0-100); Basophils Percent Auto 0.7 % (0-2); Eosinophils Absolute Auto 300 /uL (0-450); Eosinophils Percent Auto 5.3 % (2-4); Hematocrit 38.4 % (41-53); Hemoglobin 12.8 g/dL (13.5-17.5); Lymphocytes Absolute Auto 2000 /uL (1100-4500); Lymphocytes Percent Auto 33.6 % (25-40); Mean Corpuscular HGB Conc 33.5 % (30-36); Mean Corpuscular Hemoglobin 28.6 PG (26-34); Mean Corpuscular Volume 85.4 fL (80-100); Monocytes Absolute Auto 600 /uL (0-900); Monocytes Percent Auto 10.4 % (3-14); Neutrophils Absolute Auto 3000 /uL (1500-7000); Platelet Count 242 X10^3/uL (150-400); Red Blood Cell Count 4.49 X10^6/uL (4.5-5.9); Red Cell Distribution Width 14.8 % (11.6-14.8); White Blood Cell Count 6.1 X10^3/uL (4.5-11.0)
[2022-05-30 14:53] LABS: PTT Partial Thromboplastin Tim 28 SECONDS (26-36)
[2022-05-30 14:57] LABS: Alanine Aminotransferase 49 IU/L (<50); Albumin 4.2 g/dL (3.5-5.0); Albumin Globulin Ratio 1.4 (1.0-2.8); Alkaline Phosphatase 105 U/L (38-126); Aspartate Aminotransferase 67 IU/L (17-59); BUN Creatinine Ratio 14.1 (6-22); Bilirubin Total 0.4 mg/dL (0.2-1.3); Blood Urea Nitrogen 20 mg/dL (9-20); Calcium 8.8 mg/dL (8.4-10.2); Carbon Dioxide 21 mmol/L (22-32); Chloride 104 mmol/L (98-107); Estimated Glomerular Filt Rate > 60 mL/min (>60); Globulin 2.9 g/dL (1.7-4.1); Glucose 99 mg/dL (70-100); HEMOLYSIS 16 (0-50); Potassium 4.1 mmol/L (3.4-5.1); Sodium 138 mmol/L (137-145); Total Protein 7.1 g/dL (6.3-8.2)
--- NOTE | 2022-05-30 15:46 | ED_ITS ---
HPI - General Adult <Salma Cervantes MD - Last Filed: 05/31/22 05:13> General Chief complaint: Trauma Stated complaint: Left leg laceration from chainsaw Time Seen by Provider: 05/30/22 14:00 Source: patient Mode of arrival: Ambulatory History of Present Illness HPI narrative: 42-year-old gentleman with history of reflux was using a chain saw earlier today a chainsaw slipped and dug into his left anterior devries. Bleeding is controlled, he is in significant pain on arrival, concern for bone chips appreciated in the wound. Related Data Home Medications Medication Instructions Recorded Confirmed amlodipine 10 mg tablet 10 mg PO DAILY ##90 09/23/17 07/04/18 omeprazole 40 mg capsule,delayed 40 mg PO DAILY 07/04/18 07/04/18 release ondansetron HCl 8 mg tablet 8 mg PO BID 07/04/18 07/04/18 prochlorperazine maleate 10 mg 10 mg PO Q6H PRN Nausea And 07/04/18 07/04/18 tablet Vomiting ranitidine HCl 300 mg tablet 300 mg PO DAILY 07/04/18 07/04/18 venlafaxine 37.5 mg tablet 37.5 mg PO BID 07/04/18 07/04/18 Previous Rx's Medication Instructions Recorded metoclopramide HCl 10 mg tablet 10 mg PO Q6H PRN nausea and 05/17/21 (Reglan) vomiting #14 tabs oxycodone 5 mg tablet 5 mg PO Q6H PRN pain #20 tabs 05/30/22 Allergies Allergy/AdvReac Type Severity Reaction Status Date / Time No Known Drug Allergies Allergy Verified 01/01/20 16:50 Review of Systems <Salma Cervantes MD - Last Filed: 05/31/22 05:13> Review of Systems Narrative: Pertinent positive and negative findings as per HPI Remainder of review of systems is otherwise unremarkable for Constitutional: Fevers, chills, weakness ENT: No sore throat, neck pain, ear pain CV: Chest pain, palpitations, Respiratory: Cough, wheeze, dyspnea GI: Nausea, vomiting, diarrhea, : Dysuria, hematuria, Patient History <Salma Cervantes MD - Last Filed: 05/31/22 05:13> Medical History (Updated 05/30/22 @ 17:23 by Nette Stack DO) Acute pancreatitis Calf DVT (deep venous thrombosis) Chronic pancreatitis Elevated lipase Epigastric abdominal pain Gastritis Hypertension Metatarsal bone fracture Pancreatitis Persistent vomiting Vomiting Family History Brother Epilepsy Father Asthma Hypertension Social History Smoking Status: Current every day smoker Smoking Status: Current every day smoker tobacco type: cigarettes alcohol intake frequency: holidays/special occasions only Substance Use Type: marijuana Exam <Slama Cervantes MD - Last Filed: 05/31/22 05:13> Initial Vital Signs Initial Vital Signs: Vital Signs Temperature 99.1 F 05/30/22 14:12 Pulse Rate 59 L 05/30/22 14:12 Respiratory Rate 20 05/30/22 14:12 Pulse Oximetry 99 05/30/22 14:12 Oxygen Delivery Method 05/30/22 14:12 <Nette Stack DO - Last Filed: 06/12/22 20:01> Initial Vital Signs Initial Vital Signs: Vital Signs Temperature 99.1 F 05/30/22 14:12 Pulse Rate 59 L 05/30/22 14:12 Respiratory Rate 20 05/30/22 14:12 Pulse Oximetry 99 05/30/22 14:12 Oxygen Delivery Method 05/30/22 14:12 <Nette Stack DO - Last Filed: 06/12/22 20:01> Laceration Repair Laceration 1: Site: lower extremity (tibia) Size (cm): 5 Description: stellate, irregular and contaminated Depth: involves muscle layer and involves tendon Local Anesthetic: bupivacaine 0.5% and with epi Amount of anesthesia used (mL): 8 Pre-repair: wound explored and irrigated extensively Skin layer closed with: nylon Skin layer suture size: 3-0 Number of sutures: 14 Technique: simple, interrupted Muscle layer closed with: vicryl Muscle layer suture size: 3-0 Number of sutures: 6 Technique: simple, interrupted Tendon layer closed with: nylon Tendon layer suture size: 3-0 Number of sutures: 22 Course <Salma Cervantes MD - Last Filed: 05/31/22 05:13> Orders Ordered: Discontinued Medications Diphtheria/Tetanus/Acell Pertussis (Tet,Diph,Pertuss(Acell),Vac/Pf 0.5 Ml Syringe) 0.5 ml IM .ONCE ONE Stop: 05/30/22 14:12 Last Admin: 05/30/22 14:21 Dose: 0.5 ml Documented By: EVAN Hydromorphone HCl (Hydromorphone 1 Mg Inj) 2 mg IM NOW ONE Stop: 05/30/22 14:11 Last Admin: 05/30/22 14:20 Dose: 2 mg Documented By: EVAN Hydromorphone HCl (Hydromorphone 1 Mg Inj) 1 mg IV NOW ONE Stop: 05/30/22 14:35 Last Admin: 05/30/22 14:39 Dose: 1 mg Documented By: SHALONDA Hydromorphone HCl (Hydromorphone 1 Mg Inj) 1 mg IV NOW ONE Stop: 05/30/22 17:20 Last Admin: 05/30/22 18:40 Dose: Not Given Documented By: MELISSA Cefazolin Sodium/Dextrose (Ancef) 100 mls @ 200 mls/hr IV NOW ONE Stop: 05/30/22 17:48 Last Infusion: 05/30/22 18:05 Dose: 0 mls/hr Documented By: Admin: 05/30/22 17:34 Dose: 200 mls/hr Documented By: MELISSA Oxycodone/Acetaminophen (Oxycodone/Acetaminophen 5/325 Tablet) 2 tab PO NOW ONE Stop: 05/30/22 15:51 Last Admin: 05/30/22 15:57 Dose: 2 tab Documented By: MELISSA Vital Signs Vital signs: Vital Signs - 8 hr 05/30/22 14:12 05/30/22 14:14 05/30/22 14:59 Temperature 99.1 F Pulse Rate 59 L Respiratory Rate 20 Blood Pressure 164/72 H 132/79 Pulse Oximetry 99 Oxygen Delivery Method Room Air 05/30/22 14:59 05/30/22 15:00 05/30/22 15:02 Temperature Pulse Rate 59 L 49 L Respiratory Rate Blood Pressure 171/77 H Pulse Oximetry 99 98 Oxygen Delivery Method 05/30/22 15:02 05/30/22 15:30 05/30/22 15:31 Temperature Pulse Rate 61 66 Respiratory Rate Blood Pressure 150/100 H Pulse Oximetry 98 97 Oxygen Delivery Method Room Air 05/30/22 15:31 Temperature Pulse Rate 56 L Respiratory Rate Blood Pressure Pulse Oximetry 97 Oxygen Delivery Method <Nette Stack DO - Last Filed: 06/12/22 20:01> Orders Ordered: Discontinued Medications Diphtheria/Tetanus/Acell Pertussis (Tet,Diph,Pertuss(Acell),Vac/Pf 0.5 Ml Syringe) 0.5 ml IM .ONCE ONE Stop: 05/30/22 14:12 Last Admin: 05/30/22 14:21 Dose: 0.5 ml Documented By: EVAN Hydromorphone HCl (Hydromorphone 1 Mg Inj) 2 mg IM NOW ONE Stop: 05/30/22 14:11 Last Admin: 05/30/22 14:20 Dose: 2 mg Documented By: EVAN Hydromorphone HCl (Hydromorphone 1 Mg Inj) 1 mg IV NOW ONE Stop: 05/30/22 14:35 Last Admin: 05/30/22 14:39 Dose: 1 mg Documented By: SHALONDA Hydromorphone HCl (Hydromorphone 1 Mg Inj) 1 mg IV NOW ONE Stop: 05/30/22 17:20 Last Admin: 05/30/22 18:40 Dose: Not Given Documented By: MELISSA Cefazolin Sodium/Dextrose (Ancef) 100 mls @ 200 mls/hr IV NOW ONE Stop: 05/30/22 17:48 Last Infusion: 05/30/22 18:05 Dose: 0 mls/hr Documented By: Admin: 05/30/22 17:34 Dose: 200 mls/hr Documented By: MELISSA Oxycodone/Acetaminophen (Oxycodone/Acetaminophen 5/325 Tablet) 2 tab PO NOW ONE Stop: 05/30/22 15:51 Last Admin: 05/30/22 15:57 Dose: 2 tab Documented By: MELISSA Vital Signs Vital signs: Vital Signs - 8 hr 05/30/22 14:12 05/30/22 14:14 05/30/22 14:59 Temperature 99.1 F Pulse Rate 59 L Respiratory Rate 20 Blood Pressure 164/72 H 132/79 Pulse Oximetry 99 Oxygen Delivery Method Room Air 05/30/22 14:59 05/30/22 15:00 05/30/22 15:02 Temperature Pulse Rate 59 L 49 L Respiratory Rate Blood Pressure 171/77 H Pulse Oximetry 99 98 Oxygen Delivery Method 05/30/22 15:02 05/30/22 15:30 05/30/22 15:31 Temperature Pulse Rate 61 66 Respiratory Rate Blood Pressure 150/100 H Pulse Oximetry 98 97 Oxygen Delivery Method Room Air 05/30/22 15:31 Temperature Pulse Rate 56 L Respiratory Rate Blood Pressure Pulse Oximetry 97 Oxygen Delivery Method Medical Decision Making <Salma Cervantes MD - Last Filed: 05/31/22 05:13> Lab Data Result diagrams: 05/30/22 14:33 05/30/22 14:33 Labs: Lab Results 05/30/22 05/30/22 05/30/22 Range/Units 14:33 14:33 14:33 WBC 6.1 (4.5-11.0) X10^3/uL RBC 4.49 L (4.5-5.9) X10^6/uL Hgb 12.8 L (13.5-17.5) g/dL Hct 38.4 L (41-53) % MCV 85.4 (80-100) fL MCH 28.6 (26-34) PG MCHC 33.5 (30-36) % RDW 14.8 (11.6-14.8) % Plt Count 242 (150-400) X10^3/uL Neut % (Auto) 50.0 (50-75) % Lymph % (Auto) 33.6 (25-40) % Bradford % (Auto) 10.4 (3-14) % Eos % (Auto) 5.3 H (2-4) % Baso % (Auto) 0.7 (0-2) % Neut # (Auto) 3000 (7346-3970) /uL Lymph # (Auto) 2000 (2281-6538) /uL Bradford # (Auto) 600 (0-900) /uL Eos # (Auto) 300 (0-450) /uL Baso # (Auto) 0 (0-100) /uL PT 12.0 (10.1-12.7) SECONDS INR 1.0 (0.9-1.3) APTT 28 (26-36) SECONDS Sodium 138 (137-145) mmol/L Potassium 4.1 (3.4-5.1) mmol/L Chloride 104 (98-107) mmol/L Carbon Dioxide 21 L (22-32) mmol/L BUN 20 (9-20) mg/dL Creatinine 1.42 H (0.66-1.25) mg/dL Estimated GFR > 60 (>60) mL/min BUN/Creatinine Ratio 14.1 (6-22) Glucose 99 (70-100) mg/dL Calcium 8.8 (8.4-10.2) mg/dL Total Bilirubin 0.4 (0.2-1.3) mg/dL AST 67 H (17-59) IU/L ALT 49 (<50) IU/L Alkaline Phosphatase 105 (38-126) U/L Total Protein 7.1 (6.3-8.2) g/dL Albumin 4.2 (3.5-5.0) g/dL Globulin 2.9 (1.7-4.1) g/dL Albumin/Globulin Ratio 1.4 (1.0-2.8) <Nette Stack, DO - Last Filed: 06/12/22 20:01> Lab Data Labs: Lab Results 05/30/22 05/30/22 05/30/22 Range/Units 14:33 14:33 14:33 WBC 6.1 (4.5-11.0) X10^3/uL RBC 4.49 L (4.5-5.9) X10^6/uL Hgb 12.8 L (13.5-17.5) g/dL Hct 38.4 L (41-53) % MCV 85.4 (80-100) fL MCH 28.6 (26-34) PG MCHC 33.5 (30-36) % RDW 14.8 (11.6-14.8) % Plt Count 242 (150-400) X10^3/uL Neut % (Auto) 50.0 (50-75) % Lymph % (Auto) 33.6 (25-40) % Bradford % (Auto) 10.4 (3-14) % Eos % (Auto) 5.3 H (2-4) % Baso % (Auto) 0.7 (0-2) % Neut # (Auto) 3000 (3425-7153) /uL Lymph # (Auto) 2000 (8106-5742) /uL Bradford # (Auto) 600 (0-900) /uL Eos # (Auto) 300 (0-450) /uL Baso # (Auto) 0 (0-100) /uL PT 12.0 (10.1-12.7) SECONDS INR 1.0 (0.9-1.3) APTT 28 (26-36) SECONDS Sodium 138 (137-145) mmol/L Potassium 4.1 (3.4-5.1) mmol/L Chloride 104 (98-107) mmol/L Carbon Dioxide 21 L (22-32) mmol/L BUN 20 (9-20) mg/dL Creatinine 1.42 H (0.66-1.25) mg/dL Estimated GFR > 60 (>60) mL/min BUN/Creatinine Ratio 14.1 (6-22) Glucose 99 (70-100) mg/dL Calcium 8.8 (8.4-10.2) mg/dL Total Bilirubin 0.4 (0.2-1.3) mg/dL AST 67 H (17-59) IU/L ALT 49 (<50) IU/L Alkaline Phosphatase 105 (38-126) U/L Total Protein 7.1 (6.3-8.2) g/dL Albumin 4.2 (3.5-5.0) g/dL Globulin 2.9 (1.7-4.1) g/dL Albumin/Globulin Ratio 1.4 (1.0-2.8) MDM Narrative Medical decision making narrative: Patient signed out to myself by Dr. Cervantes. Patient had injury with chainsaw to the left anterior tibia with involvement of the bone at the anterior cortex. Case was discussed with Dr. Worthy by Dr. Cervantes. Patient also has appears to be muscle tendon involvement as well he has strength intact and full range of motion. Patient was irrigated extensively with 2 L of, received IV antibiotics, suture repair with absorbable and muscle and tendon and nylon in the skin splint, crutches, oral antibiotics and pain control. Return precautions discussed at length. Patient's labs did note that he has chronic kidney disease. Patient is aware of this. Discharge Plan Departure Patient Disposition: Home Clinical Impression: Laceration of left leg excluding thigh, with complication, Fracture of left tibia, Contact with chainsaw as cause of accidental injury Instructions: DI for Laceration Repair -- Complex Activity Restrictions/Additional Instructions: Follow-up with orthopedic surgery. Call 1st thing in the morning for follow-up appointment. Referral is included below. Sutures on the outside of your leg to be removed in 7-10 days. Please wear splint and use crutches nonweightbearing until cleared by Orthopedic surgery Take antibiotics daily until gone You may take Tylenol up to a 1000 mg every 6 hours as needed for pain. You may also take oxycodone 1-2 tablets every 6 hours as needed for pain. This medication can make you sleepy do not drive, perform hazardous activities or make any major decisions while taking it. This medication will make you constipated please take a stool softener once to twice daily until stools are soft and regular. Prescription sent to [facility]. Wound Care: Keep wound(s) clean and dry. Wash daily with soap and water only. Do not use over the counter products (alcohol or peroxide)on the wounds unless instructed by a physician, you can use triple antibiotic ointment to the affected area If wound condition worsens (increased/expanding redness, developing fluid blisters, or worsening pain), either contact your doctor for an urgent re- assessment , or return to the Emergency Department. Return to the Emergency Department for any new or worsening symptoms. Return if fever greater than 100.4 Fahrenheit, increased swelling, increasing pain or worsening symptoms such as increased discharge or spreading redness, new numbness, tingling weakness or other new or concerning symptoms. Prescriptions: New oxycodone 5 mg tablet 5 mg PO Q6H PRN (Reason: pain) Qty: 20 0RF No Action amlodipine 10 MG tablet 10 mg PO DAILY Qty: 90 ranitidine HCl 300 mg tablet 300 mg PO DAILY ondansetron HCl 8 mg tablet 8 mg PO BID prochlorperazine maleate 10 mg tablet 10 mg PO Q6H PRN (Reason: Nausea And Vomiting) Label Comments: take 1 tablet by mouth every 6 hours if needed for nausea and vomiting omeprazole 40 mg capsule,delayed release(DR/EC) 40 mg PO DAILY venlafaxine 37.5 mg tablet 37.5 mg PO BID metoclopramide HCl [Reglan] 10 mg tablet 10 mg PO Q6H PRN (Reason: nausea and vomiting) Qty: 14 0RF Referrals: Chely Butler MD [Physician] - Magali Macdonald ARNP [Primary Care Provider] - Stand Alone Forms: Work Release Note Visit Report Forms: Patient Portal/API
[2022-05-30] MEDS: OXYCODONE/ACETAMINOPHEN 5/325 TABLET 2 TAB PO (15:57)
--- NOTE | 2022-05-30 16:16 | PC.NURSE ---
Pt LLE wound irrigated. Provider notified of this.
[2022-05-30] MEDS: CEFAZOLIN 2 GM/100 ML PREMIX 100 ML IV (17:34)
== END 2022-05-30 18:59 | disposition home or self-care (01) ==
PROVIDERS: Emergency Medicine; Emergency Provider Emergency Medicine; Family Provider Nurse Practitioner Gerontology; PCP Nurse Practitioner Gerontology
DX: S71.112A Laceration without foreign body, left thigh, initial encounter (principal); S82.302A Unspecified fracture of lower end of left tibia, initial encounter for closed fracture; W29.3XXA Contact with powered garden and outdoor hand tools and machinery, initial encounter; Z23 Encounter for immunization
CPT/HCPCS: 13121; 36415; 73590; 80053; 85025; 85610; 85730; 90471; 96365; 96372; 96375; 99284; 90715; J0690; J1170